=== PATIENT | female | born 1990 | race African-American/Black ===

== ENCOUNTER 2018-09-14 13:29 | Observation (INO) | payer MEDICAID ==
[~2018-09-14] VITALS: Ht 167.6 cm; Wt 83.9 kg
[~2018-09-14 13:29] MED LIST: CALC-1042 PO; PNV1TABL50 PO
[2018-09-14 15:09] LABS: CLARITY URINE CLEAR (CLEAR); COLOR URINE YELLOW (YELLOW); KETONES URINE NEGATIVE (NEGATIVE); LEUKOCYTE ESTERASE URINE 1+ (NEGATIVE); NITRITE URINE NEGATIVE (NEGATIVE); OCCULT BLOOD URINE NEGATIVE (NEGATIVE); PROTEIN URINE NEGATIVE (NEGATIVE); SPECIFIC GRAVITY URINE 1.005 (1.005-1.030); UROBILINOGEN URINE 0.2 E.U./dL (0.2-1.0)
== END 2018-09-14 16:10 | disposition home or self-care (01) ==
LOC: 8 EST LDRP 13:29
PROVIDERS: ADMIT Obstetrics & Gynecology; ATTEND Obstetrics & Gynecology
DX: O62.9 Abnormality of forces of labor, unspecified (principal); O26.893 Other specified pregnancy related conditions, third trimester; N89.8 Other specified noninflammatory disorders of vagina; Z3A.37 37 weeks gestation of pregnancy
CPT/HCPCS: 81003; 99281; G0378

== ENCOUNTER 2018-10-01 18:23 | Inpatient (IN) | payer MEDICAID ==
[~2018-10-01] VITALS: Ht 170.2 cm; Wt 83.9 kg
[~2018-10-01 18:23] MED LIST changes: +METHYLERGONOVINE MALEATE 0.2 MG/ML ONE
[2018-10-01] MEDS ORDERED: LACTATED RINGERS 1,000 ML IV SCH (19:51)
[2018-10-01] MEDS ORDERED: DEXT 5%/LR + PITOCIN 20UNITS/L 1,000 ML IV SCH ×2 (19:51→22:19)
[2018-10-01] MEDS ORDERED: METHYLERGONOVINE MALEATE 0.2 MG/ML IM PRN (20:00)
[2018-10-01] MEDS ORDERED: LIDOCAINE HCL 1% 20ML VIAL (Pyxis) INJ INFIL SCH (20:00)
[2018-10-01] MEDS ORDERED: CARBOPROST TROMETHAMINE 250 MCG/ML AMPUL IM PRN (20:00)
[2018-10-01] MEDS ORDERED: BUTORPHANOL TARTRATE 2 MG/ML VIAL IV PRN ×2 (20:00→22:45)
[2018-10-01] MEDS ORDERED: MISOPROSTOL 100MCG TABLET VG SCH (20:00)
[2018-10-01] MEDS ORDERED: NALOXONE HCL 0.4 MG/ML 1ML VIAL IM PRN (20:00)
[2018-10-01 20:19] LABS: CLARITY URINE CLOUDY (CLEAR); COLOR URINE YELLOW (YELLOW); KETONES URINE NEGATIVE (NEGATIVE); LEUKOCYTE ESTERASE URINE 3+ (NEGATIVE); NITRITE URINE NEGATIVE (NEGATIVE); OCCULT BLOOD URINE NEGATIVE (NEGATIVE); PH URINE 6.5 (4.5-8.0); PROTEIN URINE NEGATIVE (NEGATIVE); UROBILINOGEN URINE 0.2 E.U./dL (0.2-1.0)
[2018-10-01 20:21] LABS: BASOPHILS % 0.8 % (0.0-2.0); EOSINOPHILS % 1.3 % (0.0-5.0); HEMATOCRIT. 35.7 % (36.0-48.0); LYMPHOCYTES % 25.9 % (20.0-50.0); MEAN CORPUSCULAR HEMOGLOBIN 31.6 pg (28.0-32.0); MEAN CORPUSCULAR VOLUME 93.9 fL (81.0-99.0); MEAN PLATELET VOLUME 8.3 fl (7.4-10.4); MONOCYTES % 12.4 % (2.0-8.0); NEUTROPHILS % 59.6 % (40.0-76.0); PLATELET 242 x1000/uL (130-400); RED CELL DISTRIBUTION WIDTH 13.8 % (11.6-14.6)
[2018-10-01 20:33] LABS: INR 1.1; PARTIAL THROMBOPLASTIN TIME 30.1 sec (23.4-31.0); PROTHROMBIN TIME 11.2 sec (9.1-11.1)
[2018-10-01 20:34] LABS: *AMPHETAMINES SCREEN URINE NEGATIVE (NEGATIVE); *BARBITURATES SCREEN URINE NEGATIVE (NEGATIVE); *BENZODIAZEPINES SCREEN URINE NEGATIVE (NEGATIVE)
[2018-10-01 20:36] LABS: *COCAINE SCREEN URINE NEGATIVE (NEGATIVE); CANNABINOID URINE SCREEN NEGATIVE (NEGATIVE); METHADONE URINE SCREEN NEGATIVE (NEGATIVE); OPIATES URINE SCREEN NEGATIVE (NEGATIVE); PHENCYCLIDINE URINE SCREEN NEGATIVE (NEGATIVE)
[2018-10-01] MEDS ORDERED: CITRIC ACID/SODIUM CITRATE SOLN 30ML UDC PO NR (20:45)
[2018-10-01 21:09] LABS: HEPATITIS B SURFACE ANTIGEN NEGATIVE
[2018-10-01] MEDS ORDERED: LANOLIN OINT 0.25 GM TUBE TOP PRN (22:30)
[2018-10-01] MEDS ORDERED: DIPHENHYDRAMINE 25MG CAPSULE PO PRN ×2 (22:30→22:45)
[2018-10-01] MEDS ORDERED: ONDANSETRON HCL 4MG/2ML INJ IV PRN (22:30)
[2018-10-01] MEDS ORDERED: IBUPROFEN 400MG TABLET PO PRN (22:30)
[2018-10-01] MEDS ORDERED: HYDROCODONE/ACETAMINOPHEN 5/325MG TABLET PO PRN (22:30)
[2018-10-01] MEDS ORDERED: BISACODYL 10MG SUPP PR PRN (22:30)
[2018-10-01] MEDS ORDERED: HYDROMORPHONE HCL/PF 2MG/ML CPJ IM PRN (22:30)
[2018-10-01] MEDS ORDERED: BUTORPHANOL TARTRATE 2 MG/ML VIAL IM PRN (22:45)
[2018-10-01] MEDS ORDERED: KETOROLAC 30MG/ML VIAL IV PRN (22:45)
[2018-10-01] MEDS ORDERED: NALOXONE HCL 0.4 MG/ML 1ML VIAL IV PRN (22:45)
[2018-10-01] MEDS ORDERED: DIPHENHYDRAMINE 50MG/ML VIAL IV PRN (22:45)
[2018-10-02 01:15] VITALS: BP 103/62
[2018-10-02 01:45] VITALS: BP 105/71
[2018-10-02 04:00] VITALS: BP 101/64
[2018-10-02 07:42] VITALS: BP 94/54
[2018-10-02] MEDS ORDERED: INFLUENZA VIRUS VACCINE(AFLURIA) 0.5ML SYR IM ONE (08:00)
[2018-10-02] MEDS: PRENATAL VIT/FE FUMARATE/FA TABLET PO SCH (08:09)
[2018-10-02] MEDS: SIMETHICONE 80MG TABLET CHEW PO SCH ×4 (08:09→21:21)
[2018-10-02] MEDS ORDERED: TETANUS, DIPHTHERIA, PERTUSSIS VAC/PF 0.5ML (>7YR OLD) IM ONE (10:00)
[2018-10-02] MEDS: FERROUS SULFATE 325MG TABLET PO SCH ×2 (13:00→17:57)
[2018-10-02 16:11] VITALS: BP 107/65
[2018-10-02 16:16] LABS: BASOPHILS % 0.5 % (0.0-2.0); EOSINOPHILS % 0.3 % (0.0-5.0); HEMOGLOBIN. 9.7 g/dL (12.0-16.0); LYMPHOCYTES % 7.6 % (20.0-50.0); MEAN CORPUSCULAR HEMOGLOBIN 31.3 pg (28.0-32.0); MEAN CORPUSCULAR VOLUME 93.8 fL (81.0-99.0); MEAN PLATELET VOLUME 7.8 fl (7.4-10.4); MONOCYTES % 10.6 % (2.0-8.0); PLATELET 193 x1000/uL (130-400); RED BLOOD CELL COUNT 3.09 mill/uL (4.2-5.4); RED CELL DISTRIBUTION WIDTH 13.9 % (11.6-14.6)
[2018-10-02] MEDS: IBUPROFEN 800MG TABLET PO PRN (17:57)
[2018-10-02 19:40] VITALS: BP 92/54
[2018-10-02] MEDS: DOCUSATE SODIUM 100MG CAPSULE PO SCH (21:22)
[2018-10-03 04:00] VITALS: BP 93/57
[2018-10-03 07:56] VITALS: BP 90/56
[2018-10-03] MEDS: SIMETHICONE 80MG TABLET CHEW PO SCH ×4 (08:05→22:11)
[2018-10-03] MEDS: IBUPROFEN 800MG TABLET PO PRN ×2 (08:05→19:10)
[2018-10-03] MEDS: PRENATAL VIT/FE FUMARATE/FA TABLET PO SCH (08:06)
[2018-10-03] MEDS: FERROUS SULFATE 325MG TABLET PO SCH ×3 (08:06→18:13)
[2018-10-03 16:05] VITALS: BP 101/56
[2018-10-03 19:30] VITALS: BP 106/63
[2018-10-03] MEDS: DOCUSATE SODIUM 100MG CAPSULE PO SCH (22:12)
[2018-10-03 23:50] VITALS: BP 108/65
[2018-10-04 03:54] VITALS: BP 107/65
[2018-10-04 07:31] VITALS: BP 96/56
[2018-10-04] MEDS: FERROUS SULFATE 325MG TABLET PO SCH (08:31)
[2018-10-04] MEDS: PRENATAL VIT/FE FUMARATE/FA TABLET PO SCH (08:31)
[2018-10-04] MEDS: SIMETHICONE 80MG TABLET CHEW PO SCH (08:31)
[2018-10-04] MEDS: IBUPROFEN 800MG TABLET PO PRN (08:31)
== END 2018-10-04 11:40 | disposition home or self-care (01) | DRG 540 ==
LOC: OBSVTOIN 18:23 → 8 EST LDRP 18:23 → 8EST 10-02 11:03
PROVIDERS: ADMIT Specialist; ATTEND Specialist
PROC: 10D00Z1 Extraction of Products of Conception, Low, Open Approach (ICD-10-PCS; principal; 2018-10-01)
DX: O76 Abnormality in fetal heart rate and rhythm complicating labor and delivery (principal); D64.9 Anemia, unspecified; O99.02 Anemia complicating childbirth; Z3A.39 39 weeks gestation of pregnancy; Z37.0 Single live birth
CPT/HCPCS: 36415; 80305; 86592; 86703; 86762; 86850; 86900; 87340; 88307; 99281; G0378; J2210; J2590; A4315